=== PATIENT | female | born 1980 | race African-American/Black ===

== ENCOUNTER 2020-01-24 21:58 | Inpatient (IN) | payer OTHER ==
[~2020-01-24] VITALS: Ht 165.1 cm; Wt 127.0 kg
[2020-01-28] MEDS ORDERED: OBTREX DHA COM1 EACH (08:14)
[2020-01-28] MEDS ORDERED: LABETALOL HCL100 MG (08:14)
[2020-01-28] MEDS ORDERED: ST. JOSEPH ASPI81 M2 (08:14)
== END 2020-01-28 10:58 | disposition home or self-care (01) | DRG 786 ==
LOC: OB/GYN 21:58 → LDR 21:58 → O/R 01-25 00:09 → OB/GYN 01-25 00:36
PROVIDERS: ADMIT Obstetrics & Gynecology; ATTEND Obstetrics & Gynecology
PROC: 10D00Z1 Extraction of Products of Conception, Low, Open Approach (ICD-10-PCS; principal; 2020-01-25)
PROC: 4A1HXFZ Monitoring of Products of Conception, Cardiac Rhythm, External Approach (ICD-10-PCS; 2020-01-25)
PROC: 30233N1 Transfusion of Nonautologous Red Blood Cells into Peripheral Vein, Percutaneous Approach (ICD-10-PCS; 2020-01-25)
DX: O36.4XX0 Maternal care for intrauterine death, not applicable or unspecified (principal); O45.8X3 Other premature separation of placenta, third trimester; Z3A.37 37 weeks gestation of pregnancy; Z37.1 Single stillbirth; Z20.828 Contact with and (suspected) exposure to other viral communicable diseases